=== PATIENT | male | born 1995 | race African-American/Black ===

== ENCOUNTER 2020-05-11 16:15 | Emergency (ER) | payer SELFPAY ==
--- OUTSIDE RECORDS SUMMARY | 2020-05-11 16:17 | XMS REPORT | Continuity of Care Document ---
:1995 Author Organization [facility] t Address [address] [place] [address] Care Team Providers Name Role Phone Mayank PAREDES Attending Clinician Julien BILLINGS M Attending Clinician Unavailable Problems This patient has no known problems. Allergies, Adverse Reactions, Alerts This patient has no known allergies or adverse reactions. Medications This patient has no known medications. Procedures This patient has no known procedures. Encounters Start End Encounter Admission Attending Care Care Encounter Source Date/Time Date/Time Type Type Clinicians Facility Department ID 2019-06-12 2019-06-12 Telephone AMENA Talley [id number] 00:00:00 00:00:00 Andrew [facility] [id number] [facility] [id number] [place] [id number] 2019-06-11 2019-06-11 Telephone ETTA Victoria [id number] 00:00:00 00:00:00 Marge MEDLEY [id number] [facility] [id number] Results This patient has no known results.
[2020-05-11] MEDS ORDERED: IBUPROFEN 200 MG TAB PO ONE (16:48)
--- NOTE | 2020-05-11 17:04 | ER ---
Nurse's Notes [facility] Name: Jordy Mays Age: 24 yrs Sex: Male : 1995 Arrival Date: 05/11/2020 Time: 16:19 Bed Waiting Private MD: Diagnosis: Acute tonsillitis Presentation: 05/11 16:26 Chief complaint: Patient states: Sore throat, chills, [place], fever for 3 days. Coronavirus ll1 screen: Client denies travel out of the [place] in the last 14 days. fever, muscle pain, sore throat, Client presents with at least one sign or symptom that may indicate coronavirus-19. Standard/surgical mask placed on the client. Ebola Screen: Patient denies travel to an Ebola-affected area in the 21 days before illness onset. Initial Sepsis Screen: Does the patient meet any 2 criteria? HR > 90 bpm. No. Patient's initial sepsis screen is negative. Does the patient have a suspected source of infection? Yes: Other: sore throat/fever. Risk Assessment: Do you want to hurt yourself or someone else? Patient reports no desire to harm self or others. Onset of symptoms was May 09, 2020. 16:26 Method Of Arrival: Ambulatory ll1 16:26 Acuity: ZAKIYA 4 ll1 Triage Assessment: 16:30 General: Appears in no apparent distress. Behavior is calm, cooperative, appropriate ll1 for age. Pain: Complains of pain in throat Quality of pain is described as aching. EENT: Throat is reddened has patchy exudate bilaterally Reports pain when swallowing. Neuro: No deficits noted. Cardiovascular: No deficits noted. Respiratory: No deficits noted. Historical: - Allergies: 16:28 No Known Allergies; ll1 - PMHx: 16:28 None; ll1 - PSHx: 16:28 None; ll1 - Immunization history:: Flu vaccine is not up to date. - Social history:: Smoking status: Patient denies any tobacco usage or history of. Screenin:09 Abuse screen: Denies threats or abuse. Nutritional screening: No deficits noted. ll1 Tuberculosis screening: No symptoms or risk factors identified. Fall Risk None identified. Total Martines Fall Scale indicates No Risk (0-24 pts). Vital Signs: 16:26 BP 125 / 74; Pulse 104; Resp 17; Temp 103.0; Pulse Ox 97% on R/A; Weight 77.11 kg; ll1 Height 6 ft. 0 in. (182.88 cm); Pain 9/10; 17:09 Pulse 100; Resp 16; Temp 99.0; ll1 16:26 Body Mass Index 23.06 (77.11 kg, 182.88 cm) ll1 ED Course: 16:19 Patient arrived in ED. mr 16:26 Lyyl Martel FNP-C is [facility]. kb 16:26 Edwin Covington MD is Attending Physician. kb 16:28 Triage completed. ll1 16:28 Arm band placed on. ll1 17:09 Patient has correct armband on for positive identification. Bed in low position. Call ll1 light in reach. Cardiac monitoring not applicable on this patient. 17:09 No provider procedures requiring assistance completed. Patient did not have IV access ll1 during this emergency room visit. Administered Medications: 16:34 Drug: Ibuprofen 600 mg Route: PO; ll1 17:11 Follow up: Response: No adverse reaction; Temperature is decreased; RASS: Alert and ll1 Calm (0) 17:05 Drug: Augmentin (Amoxicillin-Clavulanate) 875 mg Route: PO; ll1 17:10 Follow up: Response: No adverse reaction; RASS: Alert and Calm (0) ll1 Outcome: 17:03 Discharge ordered by . kb 17:09 Discharged to home ambulatory. ll1 17:09 Condition: stable 17:09 Discharge instructions given to patient, Instructed on discharge instructions, follow up and referral plans. medication usage, Demonstrated understanding of instructions, follow-up care, medications, Prescriptions given X 1. 17:11 Patient left the ED. ll1 Signatures: Lyly Martel FNP-C FNP-Ckb Darius Erica ElizondoFernanda, RN RN ll1
--- NOTE | 2020-05-11 17:04 | EDPHYS ---
Physician Documentation [facility] Name: Jordy Mays Age: 24 yrs Sex: Male : 1995 Arrival Date: 05/11/2020 Time: 16:19 Bed Waiting Private MD: ED Physician Edwin Covington HPI: 05/11 17:01 This 24 yrs old Black Male presents to ER via Ambulatory with complaints of Flu kb Symptoms. 17:02 The patient presents with sore throat. The patient describes throat pain as constant. kb Onset: The symptoms/episode began/occurred 3 day(s) ago. Severity of symptoms: At their worst the symptoms were moderate, in the emergency department the symptoms are unchanged. Modifying factors: The symptoms are alleviated by nothing, the symptoms are aggravated by swallowing, Patient's oral intake status: good Denies contact with similarly ill indivduals. Associated signs and symptoms: Pertinent positives: chills, fever, headache, Sore throat. The patient has not experienced similar symptoms in the past. The patient has not recently seen a physician. Historical: - Allergies: 16:28 No Known Allergies; ll1 - PMHx: 16:28 None; ll1 - PSHx: 16:28 None; ll1 - Immunization history:: Flu vaccine is not up to date. - Social history:: Smoking status: Patient denies any tobacco usage or history of. ROS: 17:00 Cardiovascular: Negative for chest pain, palpitations, and edema, Respiratory: Negative kb for shortness of breath, cough, wheezing, and pleuritic chest pain, Abdomen/GI: Negative for abdominal pain, nausea, vomiting, diarrhea, and constipation, MS/Extremity: Negative for injury and deformity, Skin: Negative for injury, rash, and discoloration. 17:00 Constitutional: Positive for chills, fever, malaise. 17:00 ENT: Positive for sore throat. 17:00 Neuro: Positive for headache. Exam: 17:00 Constitutional: This is a well developed, well nourished patient who is awake, alert, kb and in no acute distress. Head/Face: Normocephalic, atraumatic. Respiratory: Respirations even and unlabored. No increased work of breathing, no retractions or nasal flaring. Skin: Warm, dry with normal turgor. Normal color. MS/ Extremity: Pulses equal, no cyanosis. Neurovascular intact. Full, normal range of motion. Neuro: Awake and alert, GCS 15, oriented to person, place, time, and situation. Moves all extremities. Normal gait. 17:00 ENT: Posterior pharynx: Airway: normal, no evidence of obstruction, Tonsils: bilaterally enlarged, with erythema, with exudate, Uvula: normal, midline, swelling, that is moderate, erythema, that is moderate, exudate, that is moderate. Vital Signs: 16:26 BP 125 / 74; Pulse 104; Resp 17; Temp 103.0; Pulse Ox 97% on R/A; Weight 77.11 kg; ll1 Height 6 ft. 0 in. (182.88 cm); Pain 9/10; 17:09 Pulse 100; Resp 16; Temp 99.0; ll1 16:26 Body Mass Index 23.06 (77.11 kg, 182.88 cm) ll1 MDM: 16:29 Patient medically screened. kb 16:59 Data reviewed: vital signs, nurses notes. Data interpreted: Pulse oximetry: on room air kb is 97 %. Interpretation: normal. Counseling: I had a detailed discussion with the patient and/or guardian regarding: the historical points, exam findings, and any diagnostic results supporting the discharge/admit diagnosis, lab results, the need for outpatient follow up, a family practitioner, to return to the emergency department if symptoms worsen or persist or if there are any questions or concerns that arise at home. 05/11 16:26 Order name: Strep; Complete Time: 16:59 kb 05/11 16:59 Order name: Throat Culture EDMS Administered Medications: 16:34 Drug: Ibuprofen 600 mg Route: PO; ll1 17:11 Follow up: Response: No adverse reaction; Temperature is decreased; RASS: Alert and ll1 Calm (0) 17:05 Drug: Augmentin (Amoxicillin-Clavulanate) 875 mg Route: PO; ll1 17:10 Follow up: Response: No adverse reaction; RASS: Alert and Calm (0) ll1 Disposition: 17:43 Co-signature as Attending Physician, Edwin Covington MD. rn Disposition: 05/11/20 17:03 Discharged to Home. Impression: Acute tonsillitis. - Condition is Stable. - Discharge Instructions: Tonsillitis, [id number]. - Prescriptions for Augmentin 875- 125 mg Oral Tablet - take 1 tablet by ORAL route every 12 hours for 10 days; 20 tablet. - Medication Reconciliation Form, Thank You Letter, Antibiotic Education, Prescription Opioid Use form. - Follow up: Emergency Department; When: As needed; Reason: Worsening of condition. Follow up: Private Physician; When: 2 - 3 days; Reason: Recheck today's complaints, Continuance of care, Re-evaluation by your physician. Signatures: Dispatcher [employer] [facility] Lyly Martel, TAJ MELLOP-Edwin Springer MD MD rn Fernanda Elizondo RN RN ll1 Corrections: (The following items were deleted from the chart) 16:33 16:24 Influenza Screen (A ordered. [facility] 16:33 16:24 CORONAVIRUS ordered. [facility] 17:11 17:03 05/11/2020 17:03 Discharged to Home. Impression: Acute tonsillitis. Condition is ll1 Stable. Forms are Medication Reconciliation Form, Thank You Letter, Antibiotic Education, Prescription Opioid Use. Follow up: Emergency Department; When: As needed; Reason: Worsening of condition. Follow up: Private Physician; When: 2 - 3 days; Reason: Recheck today's complaints, Continuance of care, Re-evaluation by your physician. kb
[2020-05-11] MEDS ORDERED: AMOX/K CLAV 875 MG TAB ONE (17:21)
[2020-05-11 17:27] VITALS: BP 125/74; O2SAT 97
[2020-05-11 17:28] VITALS: TEMP 99
== END 2020-05-11 17:11 | disposition home or self-care (01) ==
LOC: ER 16:15
DX: J03.90 Acute tonsillitis, unspecified (principal)
CPT/HCPCS: 87070; 87081; 99283